=== PATIENT | male | born 1960 | race Caucasian/White ===

== ENCOUNTER 2021-09-04 10:48 | Inpatient (IN) | payer BC ==
[2021-09-04 11:36] LABS: #Eosinphils 0.4 thou/uL (0.0-0.7); #Lymphocytes 1.3 thou/uL (1.20-3.40); #Monocytes 0.9 thou/uL (0.11-0.59); #Neutrophils 5.5 thou/uL (1.40-6.50); %Basophils 0.4 % (0.0-1.0); %Eosinophils 5.4 % (0.0-10.0); %Lymphocytes 16.3 % (21.0-51.0); %Monocytes 11.1 % (0.0-10.0); %Neutrophils 66.8 % (42.0-75.0); Hemoglobin 11.8 g/dL (14.0-18.0); Mean Corpuscular HGB CONC 31.6 g/dL (32.0-36.0); Mean Corpuscular Hemoglobin 27.1 pg (27.0-31.0); Mean Corpuscular Volume 85.7 fL (78.0-98.0); Mean Platelet Volume 7.8 fL (7.4-10.4); Platelet Count 218 thou/uL (130-400); Red Blood Cell (RBC) Count 4.35 mill/uL (4.70-6.10); White Blood Cell (WBC) Count 8.2 thou/uL (4.8-10.8)
[2021-09-04 11:50] LABS: ALT (SGPT) 12 U/L (8-55); AST (SGOT) 13 U/L (5-34); Albumin 3.9 g/dL (3.4-4.8); Alkaline Phosphatase 68 U/L (40-110); Anion Gap 8 mmol/L (10-20); BUN (Urea Nitrogen) 12 mg/dL (8.4-25.7); Bilirubin, Total 0.5 mg/dL (0.2-1.2); Calc. Creatinine Clearance 0 mL/min (70-130); Calcium 8.9 mg/dL (7.8-10.44); Carbon Dioxide 26 mmol/L (23-31); Chloride 106 mmol/L (98-107); Globulin 2.9 g/dL (2.4-3.5); Glucose 99 mg/dL (80-115); Potassium 4.2 mmol/L (3.5-5.1); Protein, Total 6.8 g/dL (5.8-8.1); Sodium 136 mmol/L (136-145)
[2021-09-04 12:12] LABS: Magnesium 1.9 mg/dL (1.6-2.6)
[2021-09-04 13:53] VITALS: BMI 48.7
[2021-09-04 14:45] LABS: Troponin I Less than 0.010 ng/mL (< 0.028)
[2021-09-04] MEDS ORDERED: Magnesium 2 GM/50 ML 2 GM in Premix Bag 1 BAG IVPB SCH (15:45)
[2021-09-04 17:50] LABS: Troponin I Less than 0.010 ng/mL (< 0.028)
[2021-09-04 18:46] LABS: SARS-CoV-2 PCR by NAA Not Detected (NotDetected)
[2021-09-04] MEDS ORDERED: Atropine Sulfate 1 mg/1 ml Vial IVP PRN (18:52)
[2021-09-04] MEDS ORDERED: hydrALAZINE 20 MG/ML VIAL SLOW IVP PRN (18:53)
[2021-09-04] MEDS ORDERED: Calcium Carbonate 500 MG ChewTAB PO PRN (19:11)
[2021-09-04] MEDS ORDERED: Senokot S 8.6-50 MG TAB PO PRN (19:11)
[2021-09-04] MEDS: Rosuvastatin 10 MG TAB PO SCH (20:41)
[2021-09-04] MEDS: Acetaminophen 325 MG TAB PO PRN (20:41)
[2021-09-04] MEDS: Enoxaparin Sodium 80 MG/0.8 ML SYRINGE SC SCH (20:42)
[2021-09-04] MEDS: Zolpidem Tartrate 5 MG TAB PO SCH (22:45)
[2021-09-04 23:11] LABS: Bacteria/HPF None Seen HPF (None Seen); Bilirubin Negative (Negative); Blood, Urine Negative (Negative); Clarity Clear (Clear); Glucose, Urine (Dipstick) Normal (Negative); Ketone, Urine Negative (Negative); Leukocyte Negative Leu/uL (Negative); Nitrite Negative (Negative); Protein, Urine (Dipstick) Negative (Neg-Trace); RBC/HPF 0-3 HPF (0-3); Specific Gravity, Urine 1.013 (1.002-1.036); Squamous Epithelial 0-3 HPF (0-3); Urobilinogen Normal mg/dL (Less than 2); WBC/HPF 0-3 HPF (0-3); pH, Urine 5.5 (5.0-9.0)
[2021-09-05] MEDS: Acetaminophen 325 MG TAB PO PRN ×2 (07:27→15:28)
[2021-09-05] MEDS: Enoxaparin Sodium 80 MG/0.8 ML SYRINGE SC SCH ×2 (10:01→20:52)
[2021-09-05] MEDS: Nitrofurantoin Monohyd/M-Cryst 100 MG CAP PO SCH (10:02)
[2021-09-05] MEDS: Tamsulosin HCl 0.4 MG CAP PO SCH (10:06)
[2021-09-05] MEDS: Fluticasone Propionate Nasal Spray 16 gm Bottle NASAL SCH (11:19)
[2021-09-05] MEDS ORDERED: FLU VACC QS2021-22(6MOS UP)/PF 60 MCG/0.5 ML SYRINGE IM ONE (15:30)
[2021-09-05] MEDS: Rosuvastatin 10 MG TAB PO SCH (20:52)
[2021-09-06] MEDS: Acetaminophen 325 MG TAB PO PRN ×5 (00:11→23:01)
[2021-09-06] MEDS: Zolpidem Tartrate 5 MG TAB PO SCH ×2 (00:11→23:01)
[2021-09-06] MEDS: Enoxaparin Sodium 80 MG/0.8 ML SYRINGE SC SCH (09:24)
[2021-09-06] MEDS: Fluticasone Propionate Nasal Spray 16 gm Bottle NASAL SCH (09:25)
[2021-09-06] MEDS: Tamsulosin HCl 0.4 MG CAP PO SCH (09:26)
[2021-09-06] MEDS: Nitrofurantoin Monohyd/M-Cryst 100 MG CAP PO SCH (09:26)
[2021-09-06] MEDS: Lidocaine 5% Patch TD SCH (09:28)
[2021-09-06] MEDS: Rosuvastatin 10 MG TAB PO SCH (21:01)
[2021-09-06] MEDS: Transdermal Patch Removal TOP SCH (21:06)
[2021-09-07] MEDS ORDERED: Sodium Chloride 0.9% 1,000 ML IV SCH (06:00)
[2021-09-07] MEDS: Tamsulosin HCl 0.4 MG CAP PO SCH (09:06)
[2021-09-07] MEDS: Nitrofurantoin Monohyd/M-Cryst 100 MG CAP PO SCH (09:06)
[2021-09-07] MEDS: Acetaminophen 325 MG TAB PO PRN ×2 (09:07→13:53)
[2021-09-07] MEDS: Fluticasone Propionate Nasal Spray 16 gm Bottle NASAL SCH (09:08)
[2021-09-07] MEDS ORDERED: CEFAZOLIN 1 GM VIAL ONE ×2 (09:41→10:17)
[2021-09-07] MEDS ORDERED: Gentamicin 80 MG/2 ML VIAL ONE (09:41)
[2021-09-07] MEDS ORDERED: Midazolam HCl 2 mg/2 ml Vial ONE (10:32)
[2021-09-07] MEDS ORDERED: Fentanyl 100 MCG/2 ML VIAL ONE (10:33)
[2021-09-07] MEDS: Cephalexin 250 MG CAP PO SCH ×2 (13:52→20:25)
[2021-09-07] MEDS: Lidocaine 5% Patch TD SCH (13:52)
[2021-09-07] MEDS: Acetaminophen/Codeine 30-300mg Tablet PO PRN ×2 (16:19→20:25)
[2021-09-07] MEDS: Dronedarone HCl 400 MG TAB PO SCH (16:19)
[2021-09-07] MEDS: Rosuvastatin 10 MG TAB PO SCH (20:25)
[2021-09-07] MEDS: Transdermal Patch Removal TOP SCH (20:26)
[2021-09-08] MEDS: Zolpidem Tartrate 5 MG TAB PO SCH (00:33)
[2021-09-08] MEDS: Acetaminophen/Codeine 30-300mg Tablet PO PRN ×2 (00:33→09:41)
[2021-09-08 07:40] VITALS: BP 126/66; TEMP 97.7
[2021-09-08] MEDS: Cephalexin 250 MG CAP PO SCH (09:41)
[2021-09-08] MEDS: Fluticasone Propionate Nasal Spray 16 gm Bottle NASAL SCH (09:41)
[2021-09-08] MEDS: Tamsulosin HCl 0.4 MG CAP PO SCH (09:41)
[2021-09-08] MEDS: Nitrofurantoin Monohyd/M-Cryst 100 MG CAP PO SCH (09:41)
[2021-09-08] MEDS: Dronedarone HCl 400 MG TAB PO SCH (09:41)
[2021-09-08] MEDS: Lidocaine 5% Patch TD SCH (09:42)
[2021-09-11] MEDS ORDERED: Apixaban 5 MG TAB PO SCH (09:00)
== END 2021-09-08 11:13 | disposition home or self-care (01) | DRG 243 ==
LOC: ERS 10:48 → 2NO 11:55
PROVIDERS: ADMIT Internal Medicine; ATTEND Internal Medicine
PROC: 0JH606Z Insertion of Pacemaker, Dual Chamber into Chest Subcutaneous Tissue and Fascia, Open Approach (ICD-10-PCS; principal; 2021-09-04)
PROC: 02H63JZ Insertion of Pacemaker Lead into Right Atrium, Percutaneous Approach (ICD-10-PCS; 2021-09-04)
PROC: 02HK3JZ Insertion of Pacemaker Lead into Right Ventricle, Percutaneous Approach (ICD-10-PCS; 2021-09-04)
DX: I44.2 Atrioventricular block, complete (principal); Z20.822 Contact with and (suspected) exposure to COVID-19; Z68.42 Body mass index [BMI] 45.0-49.9, adult; I48.0 Paroxysmal atrial fibrillation; I10 Essential (primary) hypertension; I25.10 Atherosclerotic heart disease of native coronary artery without angina pectoris; E78.5 Hyperlipidemia, unspecified; E66.01 Morbid (severe) obesity due to excess calories; M19.90 Unspecified osteoarthritis, unspecified site; K21.9 Gastro-esophageal reflux disease without esophagitis; L40.9 Psoriasis, unspecified; L30.9 Dermatitis, unspecified; J30.9 Allergic rhinitis, unspecified; G47.33 Obstructive sleep apnea (adult) (pediatric); F51.04 Psychophysiologic insomnia; I08.1 Rheumatic disorders of both mitral and tricuspid valves; E78.00 Pure hypercholesterolemia, unspecified; Z28.01 Immunization not carried out because of acute illness of patient; Z79.899 Other long term (current) drug therapy; Z79.82 Long term (current) use of aspirin; Z90.49 Acquired absence of other specified parts of digestive tract; Z90.89 Acquired absence of other organs; Z82.49 Family history of ischemic heart disease and other diseases of the circulatory system; Z82.61 Family history of arthritis; Z82.0 Family history of epilepsy and other diseases of the nervous system; Z87.440 Personal history of urinary (tract) infections
CPT/HCPCS: 33208; 36415; 71045; 80053; 81001; 83735; 83880; 84443; 84484; 85025; 87086; 93005; 93010; 93306; 99152; 99153; C1785; C1898; J0690; J1580; J1650; J2250; J3010; J3475; J7050; U0003; U0005

== ENCOUNTER 2021-11-20 08:49 | Outpatient (CLI) | payer BC ==
[2021-11-20 22:50] LABS: SARS-CoV-2 PCR by NAA Not Detected (NotDetected)
== END 2021-11-20 08:50 | disposition home or self-care (01) ==
LOC: LABBT 08:49
PROVIDERS: ATTEND Internal Medicine Gastroenterology
DX: Z20.822 Contact with and (suspected) exposure to COVID-19 (principal)
CPT/HCPCS: U0003; U0005

== ENCOUNTER 2021-11-25 07:16 | Day surgery (SDC) | payer BC ==
[2021-11-23 11:57] VITALS: BMI 46.6
[2021-11-25] MEDS ORDERED: Lidocaine 1% PF 5 ML VIAL ONE (08:41)
[2021-11-25] MEDS ORDERED: PROPOFOL 200 MG/20 ML VIAL ONE (08:41)
== END 2021-11-25 10:23 | disposition home or self-care (01) ==
LOC: SDC 07:16
PROVIDERS: ATTEND Internal Medicine Gastroenterology
PROC: 0DB38ZX Excision of Lower Esophagus, Via Natural or Artificial Opening Endoscopic, Diagnostic (ICD-10-PCS; principal; 2021-11-25)
DX: C15.5 Malignant neoplasm of lower third of esophagus (principal); I96 Gangrene, not elsewhere classified; K21.9 Gastro-esophageal reflux disease without esophagitis; I10 Essential (primary) hypertension; E78.5 Hyperlipidemia, unspecified; G47.33 Obstructive sleep apnea (adult) (pediatric); I48.91 Unspecified atrial fibrillation; Z79.01 Long term (current) use of anticoagulants; Z79.2 Long term (current) use of antibiotics; Z79.899 Other long term (current) drug therapy; Z95.0 Presence of cardiac pacemaker; Z98.84 Bariatric surgery status
CPT/HCPCS: 88305; 88313; 88325; 88341; 88342; J2704

== ENCOUNTER 2021-12-15 09:30 | Outpatient (CLI) | payer BC | END 2021-12-15 09:31 | disposition home or self-care (01) | LOC: PET 09:30 | PROVIDERS: ATTEND Radiology Radiation Oncology | DX: C15.9 Malignant neoplasm of esophagus, unspecified (principal); K22.10 Ulcer of esophagus without bleeding; K22.89 Other specified disease of esophagus | CPT/HCPCS: 78815; A9552 ==

== ENCOUNTER 2021-12-24 11:38 | Outpatient (CLI) | payer BC ==
[2021-12-24 14:29] LABS: Anion Gap 15 mmol/L (10-20); BUN (Urea Nitrogen) 9 mg/dL (8.4-25.7); Calc. Creatinine Clearance 0 mL/min (70-130); Carbon Dioxide 26 mmol/L (23-31); Chloride 103 mmol/L (98-107); Glucose 93 mg/dL (80-115); Potassium 4.5 mmol/L (3.5-5.1); Sodium 139 mmol/L (136-145)
[2021-12-24 14:55] LABS: #Basophils 0.1 10x3/uL (0.0-0.2); #Eosinphils 0.3 10x3/uL (0.0-0.5); #Monocytes 0.9 10x3/uL (0.0-1.1); #Neutrophils 8.1 10x3/uL (1.5-8.4); %Basophils 0.6 % (0.0-2.0); %Eosinophils 2.6 % (0.0-6.0); %Lymphocytes 9.8 % (18.0-47.0); %Monocytes 8.2 % (0.0-10.0); %Neutrophils 78.4 % (40.0-75.0); Hemoglobin 8.8 g/dL (13.5-17.5); Mean Corpuscular HGB CONC 29.4 g/dL (32.0-36.0); Mean Corpuscular Hemoglobin 23.1 pg (27.0-33.0); Mean Corpuscular Volume 78.5 fl (81.2-95.1); Mean Platelet Volume 10.3 fl (7.4-10.4); Platelet Count 368 10x3/uL (150-450); RBC Distribution Width 19.2 % (11.5-14.5); Red Blood Cell (RBC) Count 3.81 10x6/uL (4.32-5.72); White Blood Cell (WBC) Count 10.3 10x3/uL (3.5-10.5)
[2021-12-24 16:05] LABS: Hypochromia SLIGHT = 6-15 cells (100X) (0-5/hpf); Tear Drops SLIGHT = 2-5 cells (100X) (0-1/hpf)
[2021-12-24 16:06] LABS: Elliptocytes SLIGHT = 2-5 cells (100X) (0-1/hpf)
== END 2021-12-24 11:39 | disposition home or self-care (01) ==
LOC: LABBT 11:38
PROVIDERS: ATTEND Specialist
DX: Z01.818 Encounter for other preprocedural examination (principal); C15.9 Malignant neoplasm of esophagus, unspecified; Z20.822 Contact with and (suspected) exposure to COVID-19
CPT/HCPCS: 80048; 85025; 93005; 93010; U0003; U0005

== ENCOUNTER 2021-12-28 06:05 | Day surgery (SDC) | payer BC ==
[2021-12-25 11:25] VITALS: BMI 44.7
[2021-12-28] MEDS ORDERED: Ketorolac Tromethamine 30 MG/ML VIAL ONE (06:26)
[2021-12-28] MEDS ORDERED: Acetaminophen 500 MG TAB ONE (06:26)
[2021-12-28] MEDS ORDERED: Bupivacaine 0.25% HCL 30 ML VIAL ONE (06:40)
[2021-12-28] MEDS ORDERED: Lidocaine 1% w/Epinephrine 1:100K 20 ML VIAL ONE (06:40)
[2021-12-28] MEDS ORDERED: fentaNYL Citrate/PF 100 MCG/2 ML SYRINGE ONE (06:54)
[2021-12-28] MEDS ORDERED: Midazolam HCl 2 mg/2 ml Vial ONE (06:54)
[2021-12-28] MEDS ORDERED: CEFAZOLIN 2 GM VIAL ONE (07:46)
[2021-12-28] MEDS ORDERED: Sodium Chloride 0.9% 100 ML ONE (07:46)
[2021-12-28] MEDS ORDERED: Lidocaine 1% PF 5 ML VIAL ONE (07:54)
== END 2021-12-28 09:05 | disposition home or self-care (01) ==
LOC: SDC 06:05
PROVIDERS: ATTEND Specialist
PROC: 02HV33Z Insertion of Infusion Device into Superior Vena Cava, Percutaneous Approach (ICD-10-PCS; principal; 2021-12-28)
PROC: 0JH60WZ Insertion of Totally Implantable Vascular Access Device into Chest Subcutaneous Tissue and Fascia, Open Approach (ICD-10-PCS; principal; 2021-12-28)
DX: C15.9 Malignant neoplasm of esophagus, unspecified (principal); I25.10 Atherosclerotic heart disease of native coronary artery without angina pectoris; E78.5 Hyperlipidemia, unspecified; K21.9 Gastro-esophageal reflux disease without esophagitis; L40.9 Psoriasis, unspecified; M19.90 Unspecified osteoarthritis, unspecified site; N40.0 Benign prostatic hyperplasia without lower urinary tract symptoms; E66.01 Morbid (severe) obesity due to excess calories; Z68.41 Body mass index [BMI] 40.0-44.9, adult; Z79.01 Long term (current) use of anticoagulants; Z79.2 Long term (current) use of antibiotics; Z79.82 Long term (current) use of aspirin; Z79.899 Other long term (current) drug therapy; Z95.0 Presence of cardiac pacemaker; Z98.84 Bariatric surgery status; C15.5 Malignant neoplasm of lower third of esophagus
CPT/HCPCS: 71045; 80053; C1788; J1642; J1885; J2250; J3490; S0020

== ENCOUNTER 2022-01-04 12:17 | Outpatient (CLI) | payer BC ==
[~2022-01-04 12:17] MED LIST: Iopamidol 370 76% 100 ML VIAL ONE
== END 2022-01-04 12:18 | disposition home or self-care (01) ==
LOC: CT 12:17
PROVIDERS: ATTEND Internal Medicine Hematology & Oncology
DX: I26.99 Other pulmonary embolism without acute cor pulmonale (principal); K22.89 Other specified disease of esophagus
CPT/HCPCS: 71275; Q9967

== ENCOUNTER 2022-03-03 07:28 | Outpatient (CLI) | payer BC ==
[2022-03-03] MEDS ORDERED: Iopamidol-370 76% 500 ML 1 ML ONE (08:36)
== END 2022-03-03 07:29 | disposition home or self-care (01) ==
LOC: BICCT 07:28
PROVIDERS: ATTEND Surgery
DX: Z01.818 Encounter for other preprocedural examination (principal); C15.4 Malignant neoplasm of middle third of esophagus; K22.89 Other specified disease of esophagus
CPT/HCPCS: 74174; Q9967

== ENCOUNTER 2022-03-05 10:15 | Outpatient (CLI) | payer BC | END 2022-03-05 10:16 | disposition home or self-care (01) | LOC: PET 10:15 | PROVIDERS: ATTEND Internal Medicine Hematology & Oncology | DX: C15.5 Malignant neoplasm of lower third of esophagus (principal); C77.1 Secondary and unspecified malignant neoplasm of intrathoracic lymph nodes | CPT/HCPCS: 78815; A9552 ==

== ENCOUNTER 2022-03-15 07:35 | Outpatient (CLI) | payer BC ==
[2022-03-15] MEDS ORDERED: Iopamidol-370 76% 500 ML 1 ML ONE (11:23)
== END 2022-03-15 07:36 | disposition home or self-care (01) ==
LOC: BICCT 07:35
PROVIDERS: ATTEND Internal Medicine Hematology & Oncology
DX: C15.5 Malignant neoplasm of lower third of esophagus (principal); C77.0 Secondary and unspecified malignant neoplasm of lymph nodes of head, face and neck
CPT/HCPCS: 70491; 71260; Q9967

== ENCOUNTER 2022-06-08 13:50 | Outpatient (CLI) | payer BC | END 2022-06-08 13:51 | disposition home or self-care (01) | LOC: PET 13:50 | PROVIDERS: ATTEND Internal Medicine Hematology & Oncology | DX: C15.5 Malignant neoplasm of lower third of esophagus (principal); C79.89 Secondary malignant neoplasm of other specified sites; R59.0 Localized enlarged lymph nodes; R91.8 Other nonspecific abnormal finding of lung field | CPT/HCPCS: 78815; A9552 ==

== ENCOUNTER 2022-06-14 12:43 | Outpatient (CLI) | payer BC | END 2022-06-14 12:44 | disposition home or self-care (01) | LOC: BICRAD 12:43 | PROVIDERS: ATTEND Internal Medicine Hematology & Oncology | DX: C79.89 Secondary malignant neoplasm of other specified sites (principal); C15.5 Malignant neoplasm of lower third of esophagus; J18.9 Pneumonia, unspecified organism; R06.02 Shortness of breath | CPT/HCPCS: 71046 ==

== ENCOUNTER 2022-06-23 18:00 | Outpatient (CLI) | payer BC | END 2022-06-23 18:01 | disposition home or self-care (01) | LOC: SLEEPLAB 18:00 | PROVIDERS: ATTEND Family Medicine | DX: G47.33 Obstructive sleep apnea (adult) (pediatric) (principal); R53.83 Other fatigue; R06.83 Snoring; I25.10 Atherosclerotic heart disease of native coronary artery without angina pectoris; G47.00 Insomnia, unspecified; I48.91 Unspecified atrial fibrillation; K21.9 Gastro-esophageal reflux disease without esophagitis; R09.02 Hypoxemia; E66.9 Obesity, unspecified; Z68.38 Body mass index [BMI] 38.0-38.9, adult | CPT/HCPCS: 95800 ==

== ENCOUNTER 2022-06-25 09:06 | Outpatient (CLI) | payer BC | END 2022-06-25 09:07 | disposition home or self-care (01) | LOC: BICRAD 09:06 | PROVIDERS: ATTEND Internal Medicine Hematology & Oncology | DX: J18.9 Pneumonia, unspecified organism (principal); R06.02 Shortness of breath | CPT/HCPCS: 71046 ==

== ENCOUNTER 2022-08-16 13:02 | Inpatient (IN) | payer BC ==
[~2022-08-16 13:02] MED LIST changes: -Iopamidol 370 76% 100 ML VIAL ONE; +Iopamidol-370 76% 500 ML 1 ML ONE
[2022-08-16 14:03] LABS: #Basophils 0.1 thou/uL (0.0-0.2); #Lymphocytes 0.3 thou/uL (1.20-3.40); #Monocytes 1.1 thou/uL (0.11-0.59); #Neutrophils 6.3 thou/uL (1.40-6.50); %Basophils 1.1 % (0.0-1.0); %Eosinophils 0.3 % (0.0-10.0); %Lymphocytes 3.4 % (21.0-51.0); %Monocytes 14.7 % (0.0-10.0); %Neutrophils 80.6 % (42.0-75.0); Hemoglobin 11.1 g/dL (14.0-18.0); Mean Corpuscular HGB CONC 33.8 g/dL (32.0-36.0); Mean Corpuscular Hemoglobin 36.1 pg (27.0-31.0); Mean Platelet Volume 8.6 fL (7.4-10.4); Platelet Count 265 10x3/uL (130-400); RBC Distribution Width 19.4 % (11.5-14.5); Red Blood Cell (RBC) Count 3.07 mill/uL (4.70-6.10); White Blood Cell (WBC) Count 7.8 10x3/uL (4.8-10.8)
[2022-08-16 14:24] LABS: ALT (SGPT) 33 U/L (8-55); AST (SGOT) 32 U/L (5-34); Albumin 3.4 g/dL (3.4-4.8); Alkaline Phosphatase 71 U/L (40-110); Anion Gap 17 mmol/L (10-20); BUN (Urea Nitrogen) 16 mg/dL (8.4-25.7); Bilirubin, Total 0.4 mg/dL (0.2-1.2); Calc. Creatinine Clearance 0 mL/min (70-130); Calcium 8.8 mg/dL (7.8-10.44); Carbon Dioxide 19 mmol/L (23-31); Chloride 107 mmol/L (98-107); Estimated GFR 100; Globulin 2.5 g/dL (2.4-3.5); Glucose 108 mg/dL (80-115); Potassium 4.1 mmol/L (3.5-5.1); Protein, Total 5.9 g/dL (5.8-8.1); Sodium 139 mmol/L (136-145)
[2022-08-16 15:45] LABS: Bilirubin Negative (Negative); Blood, Urine Negative (Negative); Clarity Clear (Clear); Glucose, Urine (Dipstick) Normal (Negative); Ketone, Urine Trace mg/dL (Negative); Leukocyte Negative Leu/uL (Negative); Nitrite Negative (Negative); Protein, Urine (Dipstick) 20 mg/dL (Neg-Trace); Specific Gravity, Urine 1.035 (1.002-1.036); Urobilinogen Normal mg/dL (Less than 2); pH, Urine 6.5 (5.0-9.0)
[2022-08-16 18:23] LABS: SARS-CoV-2 NAA Rapid Test DETECTED (NotDetected)
[2022-08-16 23:15] VITALS: BMI 38.0
[2022-08-17] MEDS ORDERED: Senokot S 8.6-50 MG TAB PO PRN (01:47)
[2022-08-17] MEDS ORDERED: Acetaminophen 325 MG TAB PO PRN (01:47)
[2022-08-17] MEDS ORDERED: [UNRECOGNIZED DRUG - OTHER] PO SCH (09:00)
[2022-08-17] MEDS ORDERED: predniSONE 20 MG TAB ONE (10:39)
[2022-08-17] MEDS ORDERED: Cholecalciferol 1,000 UNITS (25 MCG) TAB ONE (10:39)
[2022-08-17] MEDS ORDERED: Famotidine 20 MG TAB ONE (10:39)
[2022-08-17] MEDS: Amiodarone 200 MG TAB PO SCH (10:48)
[2022-08-17] MEDS: Apixaban 5 MG TAB PO SCH ×2 (10:49→20:30)
[2022-08-17] MEDS: Cholecalciferol 1,000 UNITS (25 MCG) TAB PO SCH (10:49)
[2022-08-17] MEDS: Famotidine 20 MG TAB PO SCH ×2 (10:49→20:30)
[2022-08-17] MEDS: Multivit, Therapeutic 1 TAB PO SCH (10:50)
[2022-08-17] MEDS: Oxybutynin ER 5 MG TAB PO SCH (10:50)
[2022-08-17] MEDS: predniSONE 20 MG TAB PO SCH (10:50)
[2022-08-17] MEDS: Rosuvastatin 10 MG TAB PO SCH (10:51)
[2022-08-17] MEDS: Tamsulosin HCl 0.4 MG CAP PO SCH (10:51)
[2022-08-17] MEDS: Fluticasone Propionate Nasal Spray 16 gm Bottle NASAL SCH (14:32)
[2022-08-17] MEDS: cefTRIAXone\\ROCEPHIN 1 GM in Sodium Chloride 0.9% 100 ML IVPB SCH (18:00)
[2022-08-17] MEDS: Doxycycline 100 MG CAP PO SCH (20:30)
[2022-08-17] MEDS ORDERED: Melatonin 3 MG TAB PO PRN (21:40)
[2022-08-18 07:21] LABS: Hemoglobin 10.1 g/dL (14.0-18.0); Mean Corpuscular HGB CONC 32.3 g/dL (32.0-36.0); Mean Corpuscular Hemoglobin 35.1 pg (27.0-31.0); Mean Platelet Volume 8.2 fL (7.4-10.4); Platelet Count 278 10x3/uL (130-400); RBC Distribution Width 19.1 % (11.5-14.5); Red Blood Cell (RBC) Count 2.87 mill/uL (4.70-6.10); White Blood Cell (WBC) Count 6.1 10x3/uL (4.8-10.8)
[2022-08-18 07:40] LABS: Anion Gap 13 mmol/L (10-20); BUN (Urea Nitrogen) 13 mg/dL (8.4-25.7); CRP (Inflammatory) 0.79 mg/dL (= or < 0.5); Calc. Creatinine Clearance 191 mL/min (70-130); Calcium 8.8 mg/dL (7.8-10.44); Carbon Dioxide 22 mmol/L (23-31); Chloride 105 mmol/L (98-107); Estimated GFR 103; Glucose 88 mg/dL (80-115); Potassium 3.8 mmol/L (3.5-5.1); Sodium 136 mmol/L (136-145)
[2022-08-18] MEDS: Famotidine 20 MG TAB PO SCH ×2 (09:13→20:26)
[2022-08-18] MEDS: Amiodarone 200 MG TAB PO SCH (09:13)
[2022-08-18] MEDS: Oxybutynin ER 5 MG TAB PO SCH (09:13)
[2022-08-18] MEDS: Tamsulosin HCl 0.4 MG CAP PO SCH (09:13)
[2022-08-18] MEDS: Apixaban 5 MG TAB PO SCH ×2 (09:13→20:26)
[2022-08-18] MEDS: Rosuvastatin 10 MG TAB PO SCH (09:13)
[2022-08-18] MEDS: Doxycycline 100 MG CAP PO SCH ×2 (09:13→20:26)
[2022-08-18] MEDS: Multivit, Therapeutic 1 TAB PO SCH (09:14)
[2022-08-18] MEDS: Fluticasone Propionate Nasal Spray 16 gm Bottle NASAL SCH (09:14)
[2022-08-18] MEDS: predniSONE 20 MG TAB PO SCH (09:14)
[2022-08-18] MEDS: Cholecalciferol 1,000 UNITS (25 MCG) TAB PO SCH (09:14)
[2022-08-18] MEDS ORDERED: Sodium Chloride 0.9% 500 ML IV SCH (11:15)
[2022-08-18 11:41] LABS: Anisocytosis MODERATE=16-30 cells (100X) (0-5/hpf); Band 3 % (5-11); Lymphocytes 2 % (21-51); MDiff Complete? YES; Metamyelocyte 1 % (0-0); Monocytes 19 % (0-10); Myelocyte 5 % (0-0); Neutrophil 70 % (42-75); Nucleated RBC 3 % (0); Platelet Morphology Comment Appears Adequate; Polychromasia MODERATE = 3-4 cells (100X) (0-2/hpf); Tear Drops SLIGHT = 2-5 cells (100X) (0-1/hpf)
[2022-08-18] MEDS: Sodium Chloride 0.9% 1,000 ML IV SCH (14:33)
[2022-08-18] MEDS: cefTRIAXone\\ROCEPHIN 1 GM in Sodium Chloride 0.9% 100 ML IVPB SCH (17:28)
[2022-08-18] MEDS: Zolpidem Tartrate 5 MG TAB PO SCH (20:26)
[2022-08-19] MEDS: Sodium Chloride 0.9% 1,000 ML IV SCH ×3 (04:10→21:15)
[2022-08-19] MEDS: Cholecalciferol 1,000 UNITS (25 MCG) TAB PO SCH (08:43)
[2022-08-19] MEDS: Multivit, Therapeutic 1 TAB PO SCH (08:44)
[2022-08-19] MEDS: Oxybutynin ER 5 MG TAB PO SCH (08:44)
[2022-08-19] MEDS: Amiodarone 200 MG TAB PO SCH (08:45)
[2022-08-19] MEDS: Famotidine 20 MG TAB PO SCH ×2 (08:45→19:48)
[2022-08-19] MEDS: predniSONE 20 MG TAB PO SCH (08:45)
[2022-08-19] MEDS: Rosuvastatin 10 MG TAB PO SCH (08:45)
[2022-08-19] MEDS: Doxycycline 100 MG CAP PO SCH ×2 (08:45→19:53)
[2022-08-19] MEDS: Apixaban 5 MG TAB PO SCH ×2 (08:46→19:49)
[2022-08-19] MEDS: Tamsulosin HCl 0.4 MG CAP PO SCH (08:46)
[2022-08-19] MEDS: Fluticasone Propionate Nasal Spray 16 gm Bottle NASAL SCH (08:55)
[2022-08-19] MEDS: cefTRIAXone\\ROCEPHIN 1 GM in Sodium Chloride 0.9% 100 ML IVPB SCH (16:58)
[2022-08-19] MEDS: Zolpidem Tartrate 5 MG TAB PO SCH ×2 (19:49→19:50)
[2022-08-20] MEDS: Sodium Chloride 0.9% 1,000 ML IV SCH ×2 (02:00→12:31)
[2022-08-20] MEDS: Cholecalciferol 1,000 UNITS (25 MCG) TAB PO SCH (08:14)
[2022-08-20] MEDS: Famotidine 20 MG TAB PO SCH (08:14)
[2022-08-20] MEDS: Tamsulosin HCl 0.4 MG CAP PO SCH (08:14)
[2022-08-20] MEDS: Rosuvastatin 10 MG TAB PO SCH (08:14)
[2022-08-20] MEDS: Doxycycline 100 MG CAP PO SCH (08:14)
[2022-08-20] MEDS: predniSONE 20 MG TAB PO SCH (08:15)
[2022-08-20] MEDS: Amiodarone 200 MG TAB PO SCH (08:15)
[2022-08-20] MEDS: Apixaban 5 MG TAB PO SCH (08:15)
[2022-08-20] MEDS: Fluticasone Propionate Nasal Spray 16 gm Bottle NASAL SCH (08:16)
[2022-08-20] MEDS: Multivit, Therapeutic 1 TAB PO SCH (08:16)
[2022-08-20] MEDS: Oxybutynin ER 5 MG TAB PO SCH (08:25)
[2022-08-20 08:38] VITALS: BP 124/80; TEMP 97.5
== END 2022-08-20 15:35 | disposition home or self-care (01) | DRG 178 ==
LOC: ERS 13:02 → ERHOLD 20:20 → T4-A 08-17 13:13 → OBSVTOIN 08-18 12:57
PROVIDERS: ADMIT Student in an Organized Health Care Education/Training Program; ATTEND Internal Medicine
PROC: 8E0ZXY6 Isolation (ICD-10-PCS; principal; 2022-08-18)
DX: U07.1 COVID-19 (principal); C15.9 Malignant neoplasm of esophagus, unspecified; E78.5 Hyperlipidemia, unspecified; I48.91 Unspecified atrial fibrillation; I95.1 Orthostatic hypotension; Z88.8 Allergy status to other drugs, medicaments and biological substances; Z79.899 Other long term (current) drug therapy; Z79.01 Long term (current) use of anticoagulants; Z79.82 Long term (current) use of aspirin; Z98.890 Other specified postprocedural states; Z95.0 Presence of cardiac pacemaker
CPT/HCPCS: 36415; 71275; 80048; 80053; 81003; 84145; 84484; 85025; 85652; 86140; 93005; J0696; J3490; J7030; J7050; J7512; Q9967

== ENCOUNTER 2022-10-06 09:30 | Outpatient (CLI) | payer BC | END 2022-10-06 09:31 | disposition home or self-care (01) | LOC: PET 09:30 | PROVIDERS: ATTEND Internal Medicine Hematology & Oncology | DX: C15.5 Malignant neoplasm of lower third of esophagus (principal); C79.89 Secondary malignant neoplasm of other specified sites | CPT/HCPCS: 78815; A9552 ==

== ENCOUNTER 2022-11-24 12:06 | Outpatient (CLI) | payer BC | END 2022-11-24 12:07 | disposition home or self-care (01) | LOC: RAD 12:06 | PROVIDERS: ATTEND Internal Medicine Critical Care Medicine | DX: R06.00 Dyspnea, unspecified (principal) | CPT/HCPCS: 71046 ==

== ENCOUNTER 2022-12-24 19:00 | Outpatient (CLI) | payer BC | END 2022-12-24 19:01 | disposition home or self-care (01) | LOC: SLEEPLAB 19:00 | PROVIDERS: ATTEND Family Medicine | DX: G47.33 Obstructive sleep apnea (adult) (pediatric) (principal); G47.10 Hypersomnia, unspecified; R06.89 Other abnormalities of breathing; R09.02 Hypoxemia; I48.91 Unspecified atrial fibrillation; E66.9 Obesity, unspecified; Z68.39 Body mass index [BMI] 39.0-39.9, adult | CPT/HCPCS: 95811 ==

== ENCOUNTER 2023-01-13 11:15 | Outpatient (CLI) | payer BC | END 2023-01-13 11:16 | disposition home or self-care (01) | LOC: RAD 11:15 | PROVIDERS: ATTEND Internal Medicine Critical Care Medicine | DX: R06.00 Dyspnea, unspecified (principal); J90 Pleural effusion, not elsewhere classified | CPT/HCPCS: 71046 ==

== ENCOUNTER 2023-02-18 09:00 | Outpatient (CLI) | payer BC | END 2023-02-18 09:01 | disposition home or self-care (01) | LOC: RAD 09:00 | PROVIDERS: ATTEND Internal Medicine Critical Care Medicine | DX: R06.00 Dyspnea, unspecified (principal); J98.4 Other disorders of lung | CPT/HCPCS: 71046 ==

== ENCOUNTER 2023-03-03 15:30 | Inpatient (IN) | payer BC ==
[2023-03-03 16:21] VITALS: BMI 40.6
[2023-03-03 16:49] LABS: Bilirubin Neg (Negative); Blood, Urine Negative (Negative); Clarity Clear (Clear); Glucose, Urine (Dipstick) Normal (Negative); Ketone, Urine Negative (Negative); Leukocyte Negative (Negative); Nitrite Negative (Negative); Protein, Urine (Dipstick) Negative (Neg-Trace); Specific Gravity, Urine 1.015 (1.005-1.030); Urobilinogen Normal mg/dL (Less than 2)
[2023-03-03 16:50] LABS: Hematocrit 38.7 % (38.8-50.0); Hemoglobin 11.4 g/dL (13.5-17.5); Mean Corpuscular HGB CONC 29.5 g/dL (32.0-36.0); Mean Corpuscular Volume 91.5 fl (81.2-95.1); Mean Platelet Volume 10.7 fl (7.4-10.4); Platelet Count 215 10x3/uL (150-450); RBC Distribution Width 25.7 % (11.5-14.5); Red Blood Cell (RBC) Count 4.23 10x6/uL (4.32-5.72); White Blood Cell (WBC) Count 8.6 10x3/uL (3.5-10.5)
[2023-03-03 17:16] LABS: PTT 27.6 sec (22.0-33.0); Prothrombin Time 10.4 sec (9.5-12.1)
[2023-03-03 17:18] LABS: ALT (SGPT) 23 U/L (8-55); AST (SGOT) 22 U/L (5-34); Albumin 4.2 g/dL (3.4-4.8); Alkaline Phosphatase 65 U/L (40-110); Anion Gap 14 mmol/L (10-20); BUN (Urea Nitrogen) 12 mg/dL (8.4-25.7); Bilirubin, Total 0.4 mg/dL (0.2-1.2); Calc. Creatinine Clearance 182 mL/min (70-130); Calcium 8.5 mg/dL (7.8-10.44); Carbon Dioxide 22 mmol/L (23-31); Chloride 109 mmol/L (98-107); Estimated GFR 99; Glucose 94 mg/dL (80-115); Protein, Total 6.2 g/dL (5.8-8.1); Sodium 141 mmol/L (136-145)
[2023-03-09] MEDS ORDERED: Heparin 10,000 UNITS/ 10 ML VIAL ONE (13:12)
[2023-03-09] MEDS ORDERED: Protamine Sulfate 50 MG/5 ML VIAL ONE (13:12)
[2023-03-09] MEDS ORDERED: CEFAZOLIN 1 GM VIAL ONE (13:12)
[2023-03-09] MEDS ORDERED: fentaNYL 50 mcg/mL 1 mL Vial ONE ×2 (14:18→17:39)
[2023-03-09] MEDS ORDERED: SUGAMMADEX SODIUM 200 MG/2 ML VIAL ONE (14:18)
[2023-03-09] MEDS ORDERED: Rocuronium Bromide 10 MG/ML (10ML VIAL) ONE (14:24)
[2023-03-09] MEDS ORDERED: PROPOFOL 200 MG/20 ML VIAL ONE (14:24)
[2023-03-09] MEDS ORDERED: Ondansetron PF 4 MG/2 ML Vial ONE (14:24)
[2023-03-09] MEDS ORDERED: Dexamethasone 20 MG/5 ML VIAL ONE (14:24)
[2023-03-09] MEDS ORDERED: Lidocaine 1% PF 5 ML VIAL ONE (14:24)
== END 2023-03-09 19:00 | disposition home or self-care (01) | DRG 274 ==
LOC: SURG A 03-09 11:23 → EDSTATUS 03-09 15:30
PROVIDERS: ADMIT Internal Medicine Cardiovascular Disease; ATTEND Internal Medicine Cardiovascular Disease
PROC: 02L73DK Occlusion of Left Atrial Appendage with Intraluminal Device, Percutaneous Approach (ICD-10-PCS; principal; 2023-03-09)
PROC: 4A00X4Z Measurement of Central Nervous Electrical Activity, External Approach (ICD-10-PCS; 2023-03-09)
PROC: B245ZZ4 Ultrasonography of Left Heart, Transesophageal (ICD-10-PCS; 2023-03-09)
DX: I31.39 Other pericardial effusion (noninflammatory) (principal); Z00.6 Encounter for examination for normal comparison and control in clinical research program; I50.32 Chronic diastolic (congestive) heart failure; R04.2 Hemoptysis; Z68.41 Body mass index [BMI] 40.0-44.9, adult; K92.2 Gastrointestinal hemorrhage, unspecified; I48.0 Paroxysmal atrial fibrillation; I25.10 Atherosclerotic heart disease of native coronary artery without angina pectoris; E78.5 Hyperlipidemia, unspecified; I44.0 Atrioventricular block, first degree; D50.9 Iron deficiency anemia, unspecified; I11.0 Hypertensive heart disease with heart failure; E66.9 Obesity, unspecified; Z98.890 Other specified postprocedural states; Z95.0 Presence of cardiac pacemaker; Z90.89 Acquired absence of other organs; Z79.01 Long term (current) use of anticoagulants; Z79.82 Long term (current) use of aspirin; Z88.8 Allergy status to other drugs, medicaments and biological substances; Z86.711 Personal history of pulmonary embolism; Z82.49 Family history of ischemic heart disease and other diseases of the circulatory system
CPT/HCPCS: 33340; 80053; 81003; 85027; 85347; 85610; 85730; 86850; 86900; 86901; 93005; 93010; 93306; 93312; C1759; C1760; C1769; C1894; J0690; J1100; J1644; J2405; J2704; J2720; J3010

== ENCOUNTER 2023-03-31 11:16 | Outpatient (CLI) | payer BC | END 2023-03-31 11:17 | disposition home or self-care (01) | LOC: RAD 11:16 | PROVIDERS: ATTEND Internal Medicine Critical Care Medicine | DX: R06.00 Dyspnea, unspecified (principal); J98.4 Other disorders of lung; Z95.0 Presence of cardiac pacemaker; Z95.828 Presence of other vascular implants and grafts; Z98.1 Arthrodesis status | CPT/HCPCS: 71046 ==

== ENCOUNTER 2023-07-22 08:54 | Outpatient (CLI) | payer BC | END 2023-07-22 08:55 | disposition home or self-care (01) | LOC: CT 08:54 → BICCT 08:55 | PROVIDERS: ATTEND Internal Medicine Hematology & Oncology | DX: C15.5 Malignant neoplasm of lower third of esophagus (principal); C79.89 Secondary malignant neoplasm of other specified sites; I31.39 Other pericardial effusion (noninflammatory); J90 Pleural effusion, not elsewhere classified; R91.8 Other nonspecific abnormal finding of lung field; Z98.890 Other specified postprocedural states | CPT/HCPCS: 71260; 74177; 82565 ==

== ENCOUNTER 2023-09-29 11:13 | Outpatient (CLI) | payer BC | END 2023-09-29 11:14 | disposition home or self-care (01) | LOC: RAD 11:13 | PROVIDERS: ATTEND Internal Medicine Critical Care Medicine | DX: R06.00 Dyspnea, unspecified (principal); J98.4 Other disorders of lung; M47.814 Spondylosis without myelopathy or radiculopathy, thoracic region; Z95.0 Presence of cardiac pacemaker; Z95.828 Presence of other vascular implants and grafts; Z98.890 Other specified postprocedural states | CPT/HCPCS: 71046 ==

== ENCOUNTER 2023-10-13 07:00 | Inpatient (IN) | payer BC ==
[2023-10-03 08:25] VITALS: BMI 40.0
[2023-10-13] MEDS ORDERED: Tranexamic Acid 1,000 MG/10 ML VIAL ONE (07:56)
[2023-10-13] MEDS ORDERED: Sodium Chloride 0.9% 100 ML ONE ×2 (07:56→09:01)
[2023-10-13] MEDS ORDERED: Vancomycin (BATCH) 2 GM in Premix 1 BAG IVPB SCH (08:15)
[2023-10-13] MEDS ORDERED: Midazolam HCl 2 mg/2 ml Vial ONE (08:22)
[2023-10-13] MEDS ORDERED: fentaNYL 50 mcg/mL 1 mL Vial ONE ×4 (08:22→11:45)
[2023-10-13] MEDS ORDERED: Bupivacaine PF 0.5% 30 ML VIAL ONE ×2 (08:23→09:01)
[2023-10-13] MEDS ORDERED: Famotidine/PF 20 mg/2ml Vial ONE (09:00)
[2023-10-13] MEDS ORDERED: CEFAZOLIN 2 GM VIAL ONE (09:01)
[2023-10-13] MEDS ORDERED: fentaNYL 50 mcg/mL 1 mL Vial SLOW IVP PRN (09:06)
[2023-10-13] MEDS ORDERED: Ropivacaine 0.2% 550 ML 550 ML NERVE BLCK SCH (09:15)
[2023-10-13] MEDS ORDERED: Zolpidem Tartrate 5 MG TAB PO PRN ×2 (09:15→09:19)
[2023-10-13] MEDS ORDERED: Promethazine HCl 25 MG/ML VIAL IM PRN ×3 (09:15→11:16)
[2023-10-13] MEDS ORDERED: traMADol HCl 50 MG TAB PO PRN ×2 (09:15)
[2023-10-13] MEDS ORDERED: fentaNYL PF 100 MCG/2 ML SYRINGE ONE (09:18)
[2023-10-13] MEDS ORDERED: PROPOFOL 20 ML ONE (09:18)
[2023-10-13] MEDS ORDERED: Acetaminophen 325 MG TAB PO PRN (09:19)
[2023-10-13] MEDS ORDERED: diphenhydrAMINE 25 MG CAP PO PRN ×2 (09:19→09:21)
[2023-10-13] MEDS ORDERED: Ondansetron PF 4 MG/2 ML Vial IVP PRN (09:19)
[2023-10-13] MEDS ORDERED: Cyclobenzaprine 10 MG TAB PO PRN (09:21)
[2023-10-13] MEDS ORDERED: Non-Formulary Item 1 EACH (Multivitamin [Multivitamin] 1 EACH Tablet) PO SCH (09:30)
[2023-10-13] MEDS ORDERED: Ondansetron PF 4 MG/2 ML Vial ONE (09:46)
[2023-10-13] MEDS ORDERED: Lidocaine 1% PF 5 ML VIAL ONE (09:46)
[2023-10-13] MEDS ORDERED: PHENYLEPHRINE-NS 100 MCG/ML 10 ML SYRINGE ONE (09:49)
[2023-10-13] MEDS ORDERED: Ondansetron HCl/PF 4 MG/2 ML Vial IVP PRN (11:16)
[2023-10-13] MEDS ORDERED: HYDROmorphone 0.5 MG/0.5 ML SYRINGE ONE ×3 (11:57→14:45)
[2023-10-13] MEDS ORDERED: Ketorolac Tromethamine 30 MG (1 mL) VIAL ONE (12:42)
[2023-10-13] MEDS ORDERED: Clindamycin/D5W 900 mg/50 ml Premix Bag ONE (12:42)
[2023-10-13] MEDS: Clindamycin/D5W 900 MG in Premix 1 BAG IVPB SCH (17:31)
[2023-10-13] MEDS: Ketorolac Tromethamine 30 MG (1 mL) VIAL IVP SCH (17:31)
[2023-10-13] MEDS: HYDROcodone/Acetaminophen 10/325 mg Tablet PO PRN ×2 (17:37→22:18)
[2023-10-13] MEDS: Ondansetron PF 4 MG/2 ML Vial IVP PRN (18:15)
[2023-10-13] MEDS: Sodium Chloride 0.9% 1,000 ML IV SCH (19:19)
[2023-10-13] MEDS: Rosuvastatin 10 MG TAB PO SCH (19:40)
[2023-10-13] MEDS: Senokot S 8.6-50 MG TAB PO SCH (19:40)
[2023-10-13] MEDS: Ferrous Gluconate 324 MG TAB PO SCH (19:41)
[2023-10-13] MEDS: Aspirin 81 mg Enteric Coated Tablet PO SCH (19:41)
[2023-10-13] MEDS: Trospium 20 MG TAB PO SCH (19:42)
[2023-10-13] MEDS ORDERED: Non-Formulary Item 1 EACH (Famotidine [Famotidine] 40 MG Tablet) PO SCH (21:00)
[2023-10-13] MEDS: Clotrimazole/Betamethasone Cr 15 GM TUBE TOP SCH (21:05)
[2023-10-14] MEDS: Zolpidem Tartrate 5 MG TAB PO SCH (00:03)
[2023-10-14 06:22] LABS: Hematocrit 36.2 % (42.0-52.0); Hemoglobin 11.5 g/dL (14.0-18.0); Mean Corpuscular HGB CONC 31.8 g/dL (32.0-36.0); Mean Corpuscular Hemoglobin 29.3 pg (27.0-31.0); Mean Corpuscular Volume 92.3 fl (78.0-98.0); Mean Platelet Volume 9.7 fL (7.4-10.4); Platelet Count 172 10x3/uL (130-400); RBC Distribution Width 20.8 % (11.5-14.5); Red Blood Cell (RBC) Count 3.92 mill/uL (4.70-6.10); White Blood Cell (WBC) Count 10.3 10x3/uL (4.8-10.8)
[2023-10-14] MEDS ORDERED: Aspirin 81 mg Enteric Coated Tablet PO SCH (09:00)
[2023-10-14] MEDS: Cholecalciferol 1,000 UNITS (25 MCG) TAB PO SCH (09:48)
[2023-10-14] MEDS: Multivit, Therapeutic 1 TAB PO SCH (09:49)
[2023-10-14] MEDS: Digoxin 0.25 MG TAB PO SCH (09:49)
[2023-10-14] MEDS: Furosemide 20 MG TAB PO SCH (09:53)
[2023-10-14] MEDS: Fluticasone Propionate Nasal Spray 16 gm Bottle NASAL SCH (09:53)
[2023-10-15 04:31] LABS: Hematocrit 32.9 % (42.0-52.0); Hemoglobin 10.5 g/dL (14.0-18.0); Mean Corpuscular HGB CONC 31.9 g/dL (32.0-36.0); Mean Corpuscular Hemoglobin 29.4 pg (27.0-31.0); Mean Corpuscular Volume 92.2 fL (78.0-98.0); Mean Platelet Volume 9.5 fL (7.4-10.4); Platelet Count 149 10x3/uL (130-400); RBC Distribution Width 20.5 % (11.5-14.5); Red Blood Cell (RBC) Count 3.57 mill/uL (4.70-6.10)
[2023-10-15 12:07] VITALS: BP 104/72; TEMP 98.3
[2023-10-15] MEDS ORDERED: Phenol 177 ML BOT PO PRN (14:23)
== END 2023-10-15 18:15 | disposition home or self-care (01) | DRG 470 ==
LOC: SDC 07:00 → SURG A 09:19 → SDC 10:00 → SURG A 14:54 → OBSVTOIN 10-15 10:07
PROVIDERS: ADMIT Orthopaedic Surgery; ATTEND Orthopaedic Surgery
PROC: 0SRC0J9 Replacement of Right Knee Joint with Synthetic Substitute, Cemented, Open Approach (ICD-10-PCS; principal; 2023-10-13)
DX: M17.0 Bilateral primary osteoarthritis of knee (principal); M25.562 Pain in left knee; I25.10 Atherosclerotic heart disease of native coronary artery without angina pectoris; E66.01 Morbid (severe) obesity due to excess calories; L40.9 Psoriasis, unspecified; J30.9 Allergic rhinitis, unspecified; I48.91 Unspecified atrial fibrillation; N40.0 Benign prostatic hyperplasia without lower urinary tract symptoms; G47.30 Sleep apnea, unspecified; Z98.84 Bariatric surgery status; Z95.0 Presence of cardiac pacemaker; Z90.89 Acquired absence of other organs; Z98.890 Other specified postprocedural states
CPT/HCPCS: 36415; 85027; 96374; 96375; 96376; A4306; C1776; G0378; J0665; J1170; J1885; J2250; J2405; J2704; J2795; J3010; J3370; J3490; S0028

== ENCOUNTER 2023-12-15 08:25 | Outpatient (CLI) | payer BC ==
[2023-12-15 09:08] LABS: Hematocrit 44.3 % (38.8-50.0); Hemoglobin 14.6 g/dL (13.5-17.5); Mean Corpuscular Hemoglobin 30.9 pg (27.0-33.0); Mean Corpuscular Volume 93.7 fl (81.2-95.1); Mean Platelet Volume 9.7 fl (7.4-10.4); Platelet Count 196 10x3/uL (150-450); RBC Distribution Width 15.2 % (11.5-14.5); Red Blood Cell (RBC) Count 4.73 10x6/uL (4.32-5.72); White Blood Cell (WBC) Count 6.8 10x3/uL (3.5-10.5)
[2023-12-15 09:23] LABS: PTT 28.5 sec (22.0-33.0); Prothrombin Time 10.9 sec (9.5-12.1)
[2023-12-15 09:37] LABS: ALT (SGPT) 11 U/L (8-55); AST (SGOT) 16 U/L (5-34); Albumin 3.5 g/dL (3.4-4.8); Alkaline Phosphatase 85 U/L (40-110); Anion Gap 11 mmol/L (10-20); BUN (Urea Nitrogen) 13 mg/dL (8.4-25.7); Bilirubin, Total 0.8 mg/dL (0.2-1.2); Calc. Creatinine Clearance 0 mL/min (70-130); Calcium 8.9 mg/dL (7.8-10.44); Carbon Dioxide 28 mmol/L (23-31); Chloride 105 mmol/L (98-107); Estimated GFR 98; Globulin 2.5 g/dL (2.4-3.5); Glucose 103 mg/dL (80-115); Potassium 4.6 mmol/L (3.5-5.1); Sodium 139 mmol/L (136-145)
== END 2023-12-15 08:26 | disposition home or self-care (01) ==
LOC: LABBT 08:25
PROVIDERS: ATTEND Internal Medicine Cardiovascular Disease
DX: Z01.812 Encounter for preprocedural laboratory examination (principal); I48.19 Other persistent atrial fibrillation
CPT/HCPCS: 80053; 85027; 85610; 85730

== ENCOUNTER 2023-12-21 09:13 | Day surgery (SDC) | payer BC ==
[2023-12-15 08:42] VITALS: BMI 38.7
[2023-12-21] MEDS ORDERED: Isoproterenol 0.2 MG/1 ML AMP ONE (10:57)
[2023-12-21] MEDS ORDERED: Heparin 10,000 UNITS/ 10 ML VIAL ONE (10:57)
[2023-12-21] MEDS ORDERED: Protamine Sulfate 50 MG/5 ML VIAL ONE (10:57)
[2023-12-21] MEDS ORDERED: fentaNYL 50 mcg/mL 1 mL Vial ONE ×2 (11:27→14:56)
[2023-12-21] MEDS ORDERED: Rocuronium Bromide 10 MG/ML (10ML VIAL) ONE (11:27)
[2023-12-21] MEDS ORDERED: Midazolam HCl 2 mg/2 ml Vial ONE (11:28)
[2023-12-21] MEDS ORDERED: Lidocaine 1% PF 5 ML VIAL ONE (11:28)
[2023-12-21] MEDS ORDERED: PROPOFOL 20 ML ONE (11:28)
[2023-12-21] MEDS ORDERED: Dexamethasone 20 MG/5 ML VIAL ONE (12:28)
[2023-12-21] MEDS ORDERED: Ondansetron PF 4 MG/2 ML Vial ONE (12:28)
[2023-12-21] MEDS ORDERED: Glycopyrrolate 0.2 MG/ML 5 ML SYRINGE ONE (13:55)
[2023-12-21] MEDS ORDERED: NEOSTIGMINE 3 MG/3 ML SYR 3 MG/3 ML SYRINGE ONE (13:55)
[2023-12-21] MEDS ORDERED: HYDROcodone/Acetaminophen 5/325 mg Tablet ONE (17:39)
== END 2023-12-21 17:45 | disposition home or self-care (01) ==
LOC: SDC 09:13
PROVIDERS: ATTEND Internal Medicine Cardiovascular Disease
DX: I48.19 Other persistent atrial fibrillation (principal); E66.01 Morbid (severe) obesity due to excess calories; D50.9 Iron deficiency anemia, unspecified; I25.10 Atherosclerotic heart disease of native coronary artery without angina pectoris; I26.99 Other pulmonary embolism without acute cor pulmonale; I31.39 Other pericardial effusion (noninflammatory); Z95.818 Presence of other cardiac implants and grafts; Z95.0 Presence of cardiac pacemaker; Z79.01 Long term (current) use of anticoagulants; Z79.82 Long term (current) use of aspirin; Z79.899 Other long term (current) drug therapy; Z88.8 Allergy status to other drugs, medicaments and biological substances; Z68.41 Body mass index [BMI] 40.0-44.9, adult
CPT/HCPCS: 85347; 93623; 93656; 93657; C1732; C1753; C1760; C1884; C1893; C1894; J1100; J1644; J2250; J2405; J2704; J2720; J3010

== ENCOUNTER 2024-01-13 08:08 | Outpatient (CLI) | payer BC ==
[2024-01-13] MEDS ORDERED: Iopamidol 370 76% 100 ML VIAL ONE (12:08)
== END 2024-01-13 08:09 | disposition home or self-care (01) ==
LOC: BICCT 08:08
PROVIDERS: ATTEND Internal Medicine Hematology & Oncology
DX: C15.5 Malignant neoplasm of lower third of esophagus (principal); C79.89 Secondary malignant neoplasm of other specified sites; I31.39 Other pericardial effusion (noninflammatory); J90 Pleural effusion, not elsewhere classified; J98.4 Other disorders of lung
CPT/HCPCS: 71260; 74177